=== PATIENT | female | born 1985 | race Caucasian/White ===

== ENCOUNTER → 2017-09-13 | Outpatient (CLI) | payer OTHER ==
[~2017-09-13] MED LIST: DICY20TA10 PO; LXP10 PO; ONDA4TAB46 SL
--- NOTE | 2017-09-13 14:34 | MAMMOGRAPHY REPORT ---
BILATERAL DIGITAL DIAGNOSTIC MAMMOGRAM TOMOSYNTHESIS WITH CAD AND TARGETED RIGHT ULTRASOUND: 09/13/20 17 CLINICAL HISTORY: The patient reports a right breast lump that has become increasingly tender over th e past 2 weeks. She is unsure how long the lump has been there. She denies any associated trauma. TECHNIQUE: Breast tomosynthesis in addition to standard 2D mammography was performed. Current study was also evaluated with a Computer Aided Detection (CAD) system. Bilateral CC and MLO 2-D and tomosy nthesis images were obtained. COMPARISON: No prior exams were available for comparison. BREAST COMPOSITION: The tissue of both breasts is heterogeneously dense, which may obscure small mas ses. FINDINGS: There is an ill-defined vague regional asymmetry within the right upper inner quadrant tessa mographically. The area is ill-defined and therefore difficult to measure but measures approximately 7 cm. The remainder of both breasts demonstrate no suspicious masses, calcifications, or areas of a rchitectural distortion. No skin thickening is evident. On clinical exam, there is a large palpable lump involving the majority of the right upper inner quad rant. A small area of bruising/ skin discoloration is also seen over the region of the lump. Target ed ultrasound was performed of the area of the palpable lump, which involves the majority of the righ t upper inner quadrant from approximately 1 to 3:00. There is heterogeneous tissue throughout this r egion on ultrasound, with areas of hyperechoic tissue as well as ill-defined areas of hypoechoic tiss ue. This heterogeneous tissue corresponds with the ill-defined focal asymmetry mammographically. Fi ndings are indeterminate and ultrasound guided core needle biopsy is recommended for further evaluati on. Ultrasound was performed of the right axillary region, which shows morphologically normal axillary ly mph nodes without evidence of adenopathy. IMPRESSION: ACR BI-RADS CATEGORY 4: SUSPICIOUS, TARGETED ULTRASOUND ACR BI-RADS CATEGORY 4: SUSPICIO US 1. The palpable lump in the right upper inner quadrant corresponds with an ill-defined focal asymmetr y mammographically, with ill-defined heterogeneous tissue seen on ultrasound involving the right 1 to 3:00 breast. The findings are suspicious and ultrasound guided core needle biopsy is recommended fo r further evaluation. 2. No mammographic evidence of malignancy in the left breast. A phone call was made to the physician's office to confirm faxed results were received. The patient has been verbally notified of the results. She tentatively scheduled the biopsy before leaving the [facility]. Approximately 10% of breast cancers are not detected with mammography. A negative mammographic report should not delay biopsy if a clinically suggestive mass is present. Kelsey Solares M.D. ah/:09/13/2017 10:40:37 Psychologist Educational: Brandi RUST)(Judy), [facility] letter sent: Abnormal 4/5 BI-RADS Code: ACR BI-RADS Category 4: Suspicious Ultrasound BI-RADS: ACR BI-RADS Category 4: Suspici ous
== END | disposition home or self-care (01) ==
LOC: C.MAMM 08:58
PROVIDERS: ATTEND Physician Assistant
DX: N63.10 Unspecified lump in the right breast, unspecified quadrant (principal)

== ENCOUNTER → 2017-10-09 | Outpatient (CLI) | payer OTHER ==
--- NOTE | 2017-10-09 15:10 | MAMMOGRAPHY REPORT ---
ASPIRATION RIGHT BREAST: 10/09/2017 CLINICAL HISTORY: 31-year-old woman with evolving left breast mastitis and abscess. She presents for reevaluation and possible additional drainage. COMPARISON: Comparison is made to exams dated: 09/13/2017 ultrasound, 09/13/2017 mammogram, and 08/28 aspiration - [facility]. PATIENT CONSENT: After explaining the risks, benefits and alternatives of the procedure to the patien t, informed consent was obtained verbally and in writing. Specific risks include: bleeding, infection and puncture of adjacent structure. A time out was preformed. PROCEDURE DESCRIPTION: First targeted ultrasound was performed throughout the upper inner quadrant of the right breast to reevaluate the area of prior multiloculated fluid collection. On visual inspect ion, there is increasing erythema and smooth raised areas that have the appearance of evolving absces s, some of which may now be intradermal. On ultrasound throughout the upper inner quadrant of the ri ght breast, there are multiple pockets of debris-filled fluid which extend close to the skin surface in the 2:00 axis, 5 through 8 cm from the nipple. This fluid is amenable to percutaneous aspiration. Please see below. The skin of the right upper inner breast was cleansed with Betadine. 1% buffered lidocaine without e pinephrine was administered subcutaneously and intraparenchymally as local anesthesia. An 18-gauge n eedle was advanced into the largest pocket of fluid and aspiration was performed. After aspiration t o near complete resolution of the fluid in the initial pocket, 6 additional pockets of fluid were asp irated after additional administration of local anesthesia. A small skin incision was made over the area in the 2:00 right breast in which the fluid extends closest to the skin surface for ease of bindu vasquez. Approximately 70 mL of purulent and blood-tinged fluid were aspirated and discarded. IMPRESSION: ASPIRATION Status post aspiration of 70 mL of purulent fluid from the right upper inner quadrant. Some residual fluid did persist after the procedure and there was continued drainage through a skin incision in th e approximate 2:00 right breast. Recommend follow-up with the patient's breast surgeon, Dr. Belcher , continue antibiotics and if needed, can return to our department for attempted additional aspiratio ns. Hannah Peraza M.D. ay/:10/09/2017 13:24:47 Ski Lift Mechanic: Mariel Liriano, [facility]
== END | disposition home or self-care (01) ==
LOC: C.MAMM 10:50
PROVIDERS: ATTEND Surgery
DX: N61.1 Abscess of the breast and nipple (principal)

== ENCOUNTER → 2017-11-22 | Outpatient (CLI) | payer OTHER ==
--- NOTE | 2017-11-22 14:52 | MAMMOGRAPHY REPORT ---
ASPIRATION RIGHT BREAST: 11/22/2017 CLINICAL HISTORY: Right breast abscesses. PATIENT CONSENT: The procedure and risks of ultrasound-guided cyst aspiration were discussed in full with the patient. Both oral and written consents were obtained. PROCEDURE DESCRIPTION: With ultrasound guidance, aseptic technique, and 1% lidocaine as a local anest hetic, an attempt was made to aspirate the largest fluid collection in the right 4:00 breast, 6 cm fr om the nipple. A small amount, approximately 2 mL, of purulent fluid was aspirated from the collecti on. The remainder of the collection would not aspirate. An attempt was made to also aspirate anothe r focal collection in the right 2:00 breast. Approximate 1 mL of prior fluid was able to be drained from this collection, while the remainder of the collection would not aspirate. The fluid was sent t o cytology for Gram stain and culture. After aspiration, the focal fluid collection in the right 2:0 0 breast measures 10 x 10 mm, while another fluid collection in the right 4:00 breast measures 2.4 x 1.2 cm. Direct pressure was applied to the site immediately post procedure and hemostasis was achieve d. The patient tolerated the procedure without complication. COMPARISON: Comparison is made to exams dated: 10/09/2017 aspiration, 09/24/2017 aspiration, 017 mammogram, and 09/13/2017 ultrasound - [facility]. IMPRESSION: ASPIRATION Ultrasound guided aspiration was performed of the largest fluid collection in the right 4:00 breast a s well as a smaller collection in the right 2:00 breast. Only a total of 3 mL of purulent fluid was able to be aspirated. The fluid was sent to cytology for Gram stain and culture. Recommend clinical follow-up. The patient was verbally notified of the results. Kelsey Solares M.D. ah/:11/22/2017 13:26:00 Attending Technologist: Brandi GRIMES(Ted)(M), [facility] Printed Circuit Photographer: Kelsey Solares MD, [facility]
--- NOTE | 2017-11-22 14:52 | MAMMOGRAPHY REPORT ---
ULTRASOUND OF RIGHT BREAST: 11/22/2017 CLINICAL HISTORY: The patient has undergone multiple aspirations for a right breast abscess. The pat ient was feeling better after an aspiration performed 10/09/2017, however, now the patient has a recu rrent right breast lump at the site of prior drainage. She is currently on a new round of antibiotic . COMPARISON: Comparison is made to exams dated: 10/09/2017 aspiration, 09/24/2017 aspiration, 017 mammogram, and 09/13/2017 ultrasound - [facility]. TECHNIQUE: Real-time targeted ultrasound of the right breast was performed. FINDINGS: Real-time, high-resolution targeted ultrasound was performed of the area of the palpable l ump and previously seen abscess in the right breast. In the right breast from 1 to 4:00, there are m ultiple hypoechoic strandy ill-defined fluid collections insinuating throughout the fat lobules, cons istent with abscesses. One focal collection in the right 1:00 breast, 3 cm from the nipple, measures 1.1 x 0.7 cm, while another in the right breast at 1:00, 5 cm from the nipple measures 13 x 10 x 5 m m. Larger ill-defined collections are also seen within the right 2 to 3:00 periareolar breast. The largest collection is seen within the right breast at 4:00, approximately 6 cm from the nipple, measu ring 2.5 x 0.8 x 3 cm. Findings are most compatible with abscesses. IMPRESSION: ACR BI-RADS CATEGORY 2: BENIGN Multiple ill-defined fluid collections in the right 1 to 4:00 breast, the largest measuring 2.5 x 3 c m in the right 4:00 breast. Findings are compatible with abscesses. There is no sonographic evidenc e of malignancy. The patient was verbally notified of the results. Attempted ultrasound guided aspiration was perform ed immediately after the ultrasound exam. Kelsey Solares M.D. /:11/22/2017 13:22:27 Attending Technologist: Brandi GRIMES(Ted)(M), [facility] Manager Highway: Kelsey Solares MD, [facility] letter sent: Normal 1/2 BI-RADS Code: ACR BI-RADS Category 2: Benign
== END | disposition home or self-care (01) ==
LOC: C.MAMM 12:26
PROVIDERS: ATTEND Surgery
DX: N60.01 Solitary cyst of right breast (principal)